=== PATIENT | male | born 1950 | race Two or more races ===

== ENCOUNTER 2017-06-17 17:46 | Emergency (ER) | payer BC, MEDICARE ==
[2017-06-17 18:11] VITALS: BP 195/104
[2017-06-17] MEDS ORDERED: ALBUTEROL SULF 2.5 MG/0.5ML(0.5%) NEB SOLN NEB ONE (19:30)
[2017-06-17] MEDS ORDERED: IPRATROPIUM BROM 0.5 MG/2.5ML INH SOL NEB ONE (19:30)
[2017-06-17] MEDS ORDERED: methylPREDNISolone SOD SUCC 125 MG/2 ML VL IM ONE (19:30)
== END 2017-06-17 20:15 | disposition home or self-care (01) ==
LOC: ER 17:50 → EDBD 17:50 → ER 20:15
DX: J40 Bronchitis, not specified as acute or chronic (principal)
CPT/HCPCS: 71046; 94640; 96372; 99284; J2930

== ENCOUNTER → 2022-12-02 | Outpatient (CLI) | payer OTHER ==
[2022-12-02 10:32] LABS: Potassium 3.6 mmol/L (3.5-5.1)
[2022-12-02 10:51] LABS: Albumin 3.6 g/dL (3.4-5.0); BUN/Creatinine Ratio 12.3 (10.0-20.0); Bilirubin, Total 0.5 mg/dL (0.2-1.0); Calcium 8.6 mg/dL (8.5-10.1)
== END | disposition home or self-care (01) ==
LOC: LAB 09:27
PROVIDERS: ATTEND Family Medicine
DX: E11.65 Type 2 diabetes mellitus with hyperglycemia (principal); E78.5 Hyperlipidemia, unspecified; R79.89 Other specified abnormal findings of blood chemistry; E55.9 Vitamin D deficiency, unspecified
CPT/HCPCS: 36415; 80053; 80061; 82306; 83036

== ENCOUNTER → 2023-04-24 | Outpatient (CLI) | payer OTHER | END | disposition home or self-care (01) | LOC: LAB 15:19 | PROVIDERS: ATTEND Family Medicine | DX: Z12.11 Encounter for screening for malignant neoplasm of colon (principal) | CPT/HCPCS: 82270 ==

== ENCOUNTER → 2024-05-24 | Outpatient (CLI) | payer OTHER ==
[2024-05-24 16:38] LABS: Alanine Aminotransferase 17 U/L (7-40); Albumin 4.1 g/dL (3.2-4.8); Anion Gap 7 (5-15); Aspartate Aminotransferase 18 U/L (13-40); BUN/Creatinine Ratio 17.4 (10.0-20.0); Blood Urea Nitrogen 20 mg/dL (9-23); Calcium 9.7 mg/dL (8.7-10.4); Carbon Dioxide 27 mmol/L (20-31); Chloride 105 mmol/L (98-107); Cholesterol 198 mg/dL (< 200); Potassium 3.6 mmol/L (3.5-5.1); Sodium 139 mmol/L (136-145)
[2024-05-24 16:39] LABS: Bilirubin, Total 0.5 mg/dL (0.2-1.0); HDL Cholesterol 48 mg/dL (40-59)
[2024-05-24 16:42] LABS: Alkaline Phosphatase 136 U/L (46-116); Glucose 125 mg/dL (74-106); LDL Cholesterol 132 mg/dL (< 100); Triglycerides 171 mg/dL (< 150)
== END | disposition home or self-care (01) ==
LOC: LAB 15:48
PROVIDERS: ATTEND Pathology Anatomic Pathology & Clinical Pathology
DX: I12.9 Hypertensive chronic kidney disease with stage 1 through stage 4 chronic kidney disease, or unspecified chronic kidney disease (principal); E11.65 Type 2 diabetes mellitus with hyperglycemia; E11.22 Type 2 diabetes mellitus with diabetic chronic kidney disease; N18.9 Chronic kidney disease, unspecified; E78.2 Mixed hyperlipidemia
CPT/HCPCS: 80053; 80061; 83036

== ENCOUNTER → 2024-08-02 | Outpatient (CLI) | payer OTHER ==
[2024-08-02 10:38] LABS: Chloride 104 mmol/L (98-107); Sodium 140 mmol/L (136-145)
[2024-08-02 10:39] LABS: Anion Gap 4 (5-15); Calcium 9.8 mg/dL (8.7-10.4)
[2024-08-02 10:44] LABS: BUN/Creatinine Ratio 15.9 (10.0-20.0); Blood Urea Nitrogen 14 mg/dL (9-23)
[2024-08-02 10:50] LABS: Carbon Dioxide 32 mmol/L (20-31); Glucose 181 mg/dL (74-106); Potassium 3.3 mmol/L (3.5-5.1)
== END | disposition home or self-care (01) ==
LOC: LAB 10:08
PROVIDERS: ATTEND Family Medicine
DX: E11.9 Type 2 diabetes mellitus without complications (principal)
CPT/HCPCS: 36415; 80048

== ENCOUNTER 2025-02-02 13:49 | Inpatient (IN) | payer OTHER, MEDICAID ==
[~2025-02-02] VITALS: Ht 170.2 cm; Wt 63.9 kg
[2025-02-02 16:04] VITALS: PULSE 74; RESP 46; O2SAT 95
[2025-02-02 16:31] VITALS: BP 148/86; PULSE 73; RESP 16; TEMP 97.5; O2SAT 95
[2025-02-02] MEDS ORDERED: ROSU5TAB24 PO (17:28)
[2025-02-02] MEDS ORDERED: FENO54TA4 PO (17:28)
[2025-02-02] MEDS ORDERED: TAMS0.4C39 PO (17:28)
[2025-02-02] MEDS ORDERED: METF-372 PO (17:28)
[2025-02-02] MEDS ORDERED: MEMA7CAP8 PO (17:28)
[2025-02-02] MEDS ORDERED: ASPI-628 PO (17:28)
[2025-02-02] MEDS ORDERED: GLIP10TA9 PO (17:28)
[2025-02-02] MEDS ORDERED: ONDANSETRON HCL 4 MG/2 ML VIAL IV PRN (17:30)
[2025-02-02] MEDS ORDERED: MORPHINE SULFATE INJ 2 MG/ml SYRG IV PRN (17:30)
[2025-02-02] MEDS ORDERED: ACETAMINOPHEN 325 MG TAB PO PRN (17:30)
[2025-02-02] MEDS ORDERED: DEXTROSE (50%) 50ML SYRG IV PRN (17:30)
[2025-02-02] MEDS ORDERED: HYDROcodone-ACET 5/325MG TAB PO PRN (17:30)
[2025-02-02] MEDS ORDERED: NITROGLYCERIN 0.4 MG SL TAB SL PRN (17:30)
[2025-02-02] MEDS ORDERED: DOCUSATE SOD 100 MG CAP PO PRN (17:30)
--- NOTE | 2025-02-02 18:07 | DVHHP2 ---
History of Present Illness Reason for Visit: right facial drop History of Present Illness Fernando Kay is a 74-year-old male with past medical history of dementia, hypertension, hyperlipidemia, diabetes, and BPH, who was a transfer due to insurance, from [facility] for R/O stroke. Patient was taken to the hospital due to vomiting blood, per family. While in the ER it was noticed he had a right facial drop. He was then admitted and worked up for stroke. CT head, & CT Angio of head and neck were negative at [facility]. Patient passed his speech evaluation there as well. He was waiting for the brain MRI. While at [facility] the patient's Hgb remained stable and there were no more S/S of vomiting blood, therefor the patient was not worked up for GI bleed. Cardiovascular: HTN, hyperipidemia Renal/: Benign prostatic enlarg. Endocrine: Diabetes Smoke: No ALCOHOL: none Drugs: None Lives: with Family Domestic Violence: Neg Review of Systems Constitutional: No: Fever, Chills, Sweats, Weakness, Malaise, Other Eyes: No: Pain, Vision change, Conjunctivae inflammation, Eyelid inflammation, Other, Redness ENT: No: Ear pain, Ear discharge, Nose pain, Nose discharge, Nose congestion, Mouth pain, Mouth swelling, Throat pain, Throat swelling, Other Respiratory: No: Cough, Dry, Shortness of breath, SOB with excertion, Wheezing, Hemoptysis, Pleuritic Pain, Sputum, Wheezing, Other Cardiovascular: No: Chest Pain, Palpitations, Orthopnea, Paroxysmal Noc. Dyspnea, Edema, Lt Headedness, Other Gastrointestinal: Other (vomiting blood); No: Nausea, Vomiting, Abdominal Pain, Diarrhea, Constipation, Melena, Hematochezia Genitourinary: No Dysuria, No Frequency, No Incontinence, No Hematuria, No Retention, No Other Musculoskeletal: No: other, neck pain, shoulder pain, arm pain, back pain, hand pain, leg pain, foot pain Skin: No: Rash, Lesions, Jaundice, Bruising, Other Neurological: Other (right facial drop); No: Weakness, Numbness, Incoordination, Change in speech, Confusion, Seizures Allergies: Coded Allergies: NO KNOWN ALLERGIES (Unverified , 06/17/17) Exam Vital Signs Vital Signs Date Time Temp Pulse Resp B/P (MAP) Pulse Ox O2 Delivery O2 Flow Rate FiO2 02/02/25 16:31 97.5 73 16 148/86 (106) 95 97.5 General Appearance: Alert, Other (can tell me his name but not date of , not able to anser any other orientation questions ) HEENT: Atraumatic, PERRLA, Mucous membr. moist/pink Respiratory: Clear to auscultation, Normal air movement Cardiovascular: Regular rate, Normal S1, Normal S2 Abdominal: Normal bowel sounds, Soft, No tenderness Extremities: No clubbing, No cyanosis, No edema, Normal pulses Skin: No rashes, No breakdown, No significant lesion Neuro: Other (Wheelchair bound at baseline ) Psych/Mental Status: Other (Altered at baseline) Labs/Xrays CBC, CMP, Chest X-Ray, EKG, ordered and pending SEPSIS Sepsis Screen Physician Orders Mrsa Screen (02/02/25 16:44) Admit (02/02/25 17:24) Code Status (02/02/25 17:24) 2 Gm Sodium Diet (02/02/25 Dinner) Sodium Chloride Lock (Saline Lock Ns) (02/02/25 22:00) Hydrocodone-Acet 5/325mg Tab (Mich[place]amme 5/32 (02/02/25 17:30) Ondansetron Hcl (Zofran) (02/02/25 17:30) Docusate Sodium Capsule (Colace Capsule) (02/02/25 17:30) Complete Blood Count (02/03/25 04:00) Comprehensive Metabolic Panel (02/03/25 04:00) Carotid Duplx W Color Dop (02/02/25 17:24) Condition: Serious (02/02/25 17:24) Enoxaparin Sodium (Lovenox) (02/03/25 10:00) Acetaminophen Tablet (Tylenol Tablet) (02/02/25 17:30) Nitroglycerin Sublingual (Ntrostat Subli (02/02/25 17:30) Morphine Sulfate Injection (02/02/25 17:30) Stat Ekg For Chest Pain (02/02/25 17:24) Notify Md Of Changes From Base (02/02/25 17:24) Stitching Department Supervisor For 24 Hours (02/02/25 17:24) Emergency Dysrhythmia Protocol (02/02/25 17:24) Rhythm Strips Once Every Shift (02/02/25 17:24) Oxygen By Nasal Cannula (02/02/25 17:24) Complete Blood Count (02/02/25 17:24) Comprehensive Metabolic Panel (02/02/25 17:24) Electrocardigram (02/02/25 17:24) Brain Head Wo Contrast (02/02/25 17:24) Glucose Blood (Accu-Chek Comfort Curve T (02/02/25 22:00) Bedtime Insulin Scale (02/02/25 22:00) Moderate Insulin Ss (02/03/25 07:00) Dextrose 50% Syringe (02/02/25 17:30) Aspirin Enteric Coated Tablet (Ecotrin E (02/03/25 10:00) Tamsulosin Hydrochloride (Flomax) (02/02/25 22:00) (Nf) Fenofibrate (02/03/25 10:00) (Nf) Glipizide (02/03/25 07:00) (Nf) Memantine Hydrochloride (Memantine (02/03/25 10:00) (Nf) Rosuvastatin Calcium (02/03/25 10:00) Vital Signs Date Time Temp Pulse Resp B/P (MAP) Pulse Ox O2 Delivery O2 Flow Rate FiO2 02/02/25 16:31 97.5 73 16 148/86 (106) 95 97.5 Assessment/Plan Assessment/Plan Assessment: R/O Stroke, Vomiting blood, Hypertension, Hyperlipidemia, Dementia, BPH, Diabetes, Plan: Admit to Tele, Neurology consult, MRI of brain, Physical therapy evaluation, Fall risk, Carotid duplex, Chest X-ray, EKG, Accu checks Q AC&HS with sliding scale, Home medications reconciled, waiting on dose of long acting insulin from family, Plan discussed with: Patient My Orders Orders - ERICKSON [facility] DIRECT[facility] Procedure Category Date Status Time Mrsa Screen LEIDY 02/02/25 Uncollected 16:44 Admit ADMIT 02/02/25 Transmitted 17:24 Code Status CODE 02/02/25 Transmitted 17:24 2 Gm Sodium Diet DIET 02/02/25 Transmitted Dinner Sodium Chloride Lock PHA 02/02/25 Logged (Saline Lock Ns) 22:00 Hydrocodone-Acet PHA 02/02/25 Logged 5/325mg Tab (Michigamme 17:30 Ondansetron Hcl PHA 02/02/25 Logged (Zofran) 17:30 Docusate Sodium PHA 02/02/25 Logged Capsule (Colace 17:30 Complete Blood Count LAB 02/03/25 Verified 04:00 Comprehensive LAB 02/03/25 Verified Metabolic Panel 04:00 Carotid Duplx W Color US 02/02/25 Logged DOP 17:24 Condition: Serious [facility] 02/02/25 In Process 17:24 Enoxaparin Sodium [facility] 02/03/25 Logged (Lovenox) 10:00 Acetaminophen Tablet PHA 02/02/25 Logged (Tylenol Tablet) 17:30 Nitroglycerin PHA 02/02/25 Logged Sublingual (Ntrostat 17:30 Morphine Sulfate PHA 02/02/25 Logged Injection 17:30 Stat Ekg For Chest [facility] 02/02/25 In Process Pain 17:24 Notify Of Changes [facility] 02/02/25 In Process From Base 17:24 Stitching Department Supervisor For [facility] 02/02/25 In Process 24 Hours 17:24 Emergency Dysrhythmia [facility] 02/02/25 In Process Protocol 17:24 Rhythm Strips Once [facility] 02/02/25 In Process Every Shift 17:24 Oxygen By Nasal RT 02/02/25 Transmitted Cannula 17:24 Complete Blood Count LAB 02/02/25 Logged 17:24 Comprehensive LAB 02/02/25 Logged Metabolic Panel 17:24 Electrocardigram EKG 02/02/25 Logged 17:24 Brain Head Wo Contrast MRI 02/02/25 Logged 17:24 Glucose Blood PHA 02/02/25 Verified (Accu-Chek Comfort 22:00 Bedtime Insulin Scale PHA 02/02/25 Verified 22:00 Moderate Insulin Ss PHA 02/03/25 Verified 07:00 Dextrose 50% Syringe PHA 02/02/25 Verified 17:30 Aspirin Enteric PHA 02/03/25 Verified Coated Tablet 10:00 Tamsulosin PHA 02/02/25 Verified Hydrochloride (Flomax) 22:00 (Nf) Fenofibrate PHA 02/03/25 Verified 10:00 (Nf) Glipizide PHA 02/03/25 Verified 07:00 (Nf) Memantine PHA 02/03/25 Verified Hydrochloride 10:00 (Nf) Rosuvastatin PHA 02/03/25 Verified Calcium 10:00 Date of Service: Feb 02, 2025 Billing Provider: ERICKSON PEARL Common Visit Codes: [id number] INP/OBS CARE (MOD) ERICKSON PEARL Feb 02, 2025 18:07
--- NOTE | 2025-02-02 18:48 | DVH ---
Indication: stroke Technique: Real-time ultrasound images of the neck vessels with whitten-scale, color and wave Doppler we re obtained. Comparison: None Findings: Technically limited examination due to patient mobility and hiccups. Right vertebral artery nonvisual ized. Mild atherosclerotic plaque. The following peak systolic velocities were recorded in cm/sec: Right internal carotid: 72 Right common carotid: 66 Right external carotid: 57 Right internal/common carotid ratio: 1.1 Left internal carotid: 83 Left common carotid: 53 Left external carotid: 58 Left internal/common carotid ratio: 1.6 Right vertebral artery: Nonvisualized Left vertebral artery: Patent with normal antegrade direction of flow. Impression: No hemodynamically significant stenosis by velocity criteria of the internal carotid arteries. Right vertebral artery nonvisualized.
[2025-02-02 19:14] LABS: Hematocrit 42.5 % (41.0-53.0); Hemoglobin 14.7 g/dL (13.5-17.5); Mean Corpuscular Hemoglobin 29.9 pg (28.0-32.0); Mean Corpuscular Volume 86.2 fL (80.0-100.0); Nucleated Red Blood Cells % 0.1 %
[2025-02-02 19:31] LABS: Alanine Aminotransferase 11 U/L (7-40); Albumin 4.1 g/dL (3.2-4.8); Anion Gap 12 (5-15); BUN/Creatinine Ratio 12.9 (10.0-20.0); Bilirubin, Total 0.6 mg/dL (0.2-1.0); Blood Urea Nitrogen 21 mg/dL (9-23); Calcium 9.8 mg/dL (8.7-10.4); Carbon Dioxide 29 mmol/L (20-31); Chloride 101 mmol/L (98-107); Potassium 3.6 mmol/L (3.5-5.1); Sodium 142 mmol/L (136-145); Total Protein 7.6 g/dL (5.7-8.2)
[2025-02-02 19:32] LABS: Alkaline Phosphatase 151 U/L (46-116); Glucose 187 mg/dL (74-106)
--- NOTE | 2025-02-02 19:53 | DVH ---
EXAM: XY CHEST PORTABLE HISTORY: stroke TECHNIQUE: 1 view of the chest COMPARISON: None FINDINGS/IMPRESSION: LUNGS: No pleural effusion, consolidation, or pneumothorax MEDIASTINUM: Unremarkable BONES: No acute osseous abnormality OTHER: None
[2025-02-02 20:00] VITALS: PULSE 74; PULSE 94; RESP 18; O2SAT 97
[2025-02-02 21:00] VITALS: BP 172/97; PULSE 94; RESP 18; TEMP 98.2; O2SAT 96
[2025-02-02] MEDS: ACCU-CHEK COMFORT CURVE STRIP VI SCH (22:00)
[2025-02-02] MEDS: SODIUM CHLOR 0.9% PF (SALINE LOCK) 10ML VIAL/SYR IV SCH (22:49)
[2025-02-02] MEDS: ATORVASTATIN 20 MG TAB PO SCH (22:50)
[2025-02-02] MEDS: TAMSULOSIN HYDROCHLORIDE 0.4 MG CAP PO SCH (22:50)
[2025-02-02] MEDS: InsuLIN REG 1unit/0.01ml Soln (100units/ml) SC SCH (22:51)
[2025-02-02] MEDS: INSULIN LANTUS (GLARGINE) 1 /0.01ml (100units/ml) SC SCH (22:52)
[2025-02-03] VITALS (8 sets, daily range): BP systolic 130–158; BP diastolic 73–87; PULSE 68–91; RESP 18–21; TEMP 98–98.8; O2SAT 93–98
[2025-02-03] MEDS: glipiZIDE 5 MG TAB PO SCH (06:17)
[2025-02-03] MEDS: InsuLIN REG 1unit/0.01ml Soln (100units/ml) SC SCH (06:18)
[2025-02-03 07:06] LABS: Hematocrit 36.9 % (41.0-53.0); Hemoglobin 13.2 g/dL (13.5-17.5); Mean Corpuscular Hemoglobin 30.2 pg (28.0-32.0); Mean Corpuscular Volume 84.5 fL (80.0-100.0); Nucleated Red Blood Cells % 0.0 %
[2025-02-03 07:12] LABS: Anion Gap 11 (5-15); BUN/Creatinine Ratio 25.4 (10.0-20.0); Calcium 9.3 mg/dL (8.7-10.4); Carbon Dioxide 29 mmol/L (20-31); Chloride 103 mmol/L (98-107); Sodium 143 mmol/L (136-145); Total Protein 6.6 g/dL (5.7-8.2)
[2025-02-03 07:13] LABS: Albumin 3.7 g/dL (3.2-4.8); Bilirubin, Total 0.5 mg/dL (0.2-1.0)
[2025-02-03 07:28] LABS: Alanine Aminotransferase < 9 U/L (7-40); Alkaline Phosphatase 128 U/L (46-116); Blood Urea Nitrogen 30 mg/dL (9-23); Glucose 106 mg/dL (74-106); Potassium 3.1 mmol/L (3.5-5.1)
[2025-02-03] MEDS: MEMANTINE HYDROCHLORIDE PO SCH (09:10)
[2025-02-03] MEDS: ENOXAPARIN SOD 30 MG/0.3 ML SYRINGE SC SCH (09:12)
[2025-02-03] MEDS: ASPirin-EC 81 mg tab PO SCH (09:12)
[2025-02-03] MEDS: POTASSIUM CHL 20 Meq TABLET PO ONE (11:23)
[2025-02-03 12:29] LABS: Hematocrit 38.2 % (41.0-53.0); Hemoglobin 13.5 g/dL (13.5-17.5)
[2025-02-03] MEDS ORDERED: PANT40TA2 PO (13:55)
--- NOTE | 2025-02-03 13:57 | DVHDS2 ---
Discharge Summary Date of Admission Feb 02, 2025 at 16:13 Date of Discharge: Feb 03, 2025 Admitting Diagnosis TIA Labs/Diagnostic Data: Laboratory Results Test 02/03/25 12:00 02/03/25 11:22 02/03/25 05:32 Hemoglobin 13.5 g/dL (13.5-17.5) Hematocrit 38.2 % (41.0-53.0) POC Glucose 76 mg/dl (70-106) White Blood Count 7.3 10^3/uL (4.4-10.8) Red Blood Count 4.36 10^6/uL (4.5-5.90) Mean Corpuscular Volume 84.5 fL (80.0-100.0) Mean Corpuscular Hemoglobin 30.2 pg (28.0-32.0) Mean Corpuscular Hemoglobin Concent 35.8 g/dL (32.0-36.0) Red Cell Distribution Width 14.3 % (11.8-14.3) Platelet Count 391 10^3/uL (140-450) Mean Platelet Volume 7.4 fL (6.9-10.8) Neutrophils (%) (Auto) 71.1 % (37.0-80.0) Lymphocytes (%) (Auto) 18.5 % (10.0-50.0) Monocytes (%) (Auto) 7.6 % (0.0-12.0) Eosinophils (%) (Auto) 2.1 % (0.0-7.0) Basophils (%) (Auto) 0.7 % (0.0-2.0) Neutrophils # (Auto) 5.2 10 ^3/uL (1.6-8.6) Lymphocytes # (Auto) 1.3 10 ^3/uL (0.4-5.4) Monocytes # (Auto) 0.6 10 ^3/uL (0-1.3) Eosinophils # (Auto) 0.2 10 ^3/uL (0-0.8) Basophils # (Auto) 0 10 ^3/uL (0-0.2) Nucleated Red Blood Cells 0.0 % Sodium Level 143 mmol/L (136-145) Potassium Level 3.1 mmol/L (3.5-5.1) Chloride Level 103 mmol/L (98-107) Carbon Dioxide Level 29 mmol/L (20-31) Anion Gap 11 (5-15) Blood Urea Nitrogen 30 mg/dL (9-23) Creatinine 1.18 mg/dL (0.700-1.30) Glomerular Filtration Rate Calc 64 mL/min (>90) BUN/Creatinine Ratio 25.4 (10.0-20.0) Serum Glucose 106 mg/dL (74-106) Calcium Level 9.3 mg/dL (8.7-10.4) Total Bilirubin 0.5 mg/dL (0.2-1.0) Aspartate Amino Transferase (AST) 13 U/L (13-40) Alanine Aminotransferase (ALT) < 9 U/L (7-40) Alkaline Phosphatase 128 U/L (46-116) Total Protein 6.6 g/dL (5.7-8.2) Albumin 3.7 g/dL (3.2-4.8) Other Laboratory Tests 02/03/25 12:00 02/03/25 05:32 Brief Hx & Hospital Course: Fernando Kay is a 74-year-old male with past medical history of dementia, hypertension, hyperlipidemia, diabetes, and BPH, who was a transfer due to insurance, from [facility] for R/O stroke. Patient was taken to the hospital due to vomiting blood, per family. While in the ER it was noticed he had a right facial drop. He was then admitted and worked up for stroke. CT head, & CT Angio of head and neck were negative at [place]. Patient passed his speech evaluation there as well. Patient will have a brain MRI done. H&H has been stable. Will discharge with Protonix. We will DC ASA. Followup with PCP in 1 week. Condition at Discharge: Poor Final Diagnosis/Problems List TIA GI Bleed ruled out Discharge Disposition: Home Discharge Instruct/Medications Diet: Regular Activity: Light activity Follow Up/Referral: PCP in 1 week Medications: see med recc Scheduled Aspirin (Aspirin Adult Low Dose), 1 TAB PO DAILY, (Reported) Fenofibrate (Fenofibrate), 1 TAB PO DAILY, (Reported) Glipizide (Glipizide), 1 TAB PO QAM, (Reported) Memantine Hydrochloride (Memantine Hydrochloride E), 1 CAP PO DAILY, (Reported) Metformin Hydrochloride (Metformin Hcl), 1 TAB PO BID, (Reported) Pantoprazole Sodium Sesquihydr (Protonix), 40 MG PO BID Rosuvastatin Calcium (Rosuvastatin Calcium), 1 TAB PO DAILY, (Reported) Tamsulosin Hcl (Tamsulosin Hcl), 0.4 MG PO HS, (Reported) Discharge Statement: "Patient was advised to return to the ER or call 911 if any headaches, dizziness, shortness of breath, chest pain, abdominal pain, bleeding, fevers, or worsening of medical condition. Patient was counseled about treatment plan, medications, possible side effects, patientverbalized understanding. All questions were answered to the best of my ability. This discharge took greater then 30 minutes in planning, reviewing documentation, counseling the patient, and discussing with other team members." ASSESSMENT ASSESSMENT Assessment Date of Service: Feb 03, 2025 Billing Provider: TIP SANDHU MD Common Visit Codes: [id number]/OBS DISCH DAY >30min TIP SANDHU MD Feb 03, 2025 13:57
--- NOTE | 2025-02-03 16:18 | DVH ---
CLINICAL HISTORY: R/O Stroke TECHNIQUE: Routine multiplanar imaging of the brain was performed without gadolinium contrast. COMPARISON: MRI BRAIN HEAD WO CONTRAST on DOS: 03/28/23 FINDINGS: Evaluation is limited due to image degradation secondary to patient motion. There is no abnormal restricted diffusion to suggest acute infarction. There are no significant chronic small vessel ischemic foci. There is [id number] brain volume loss. Scattered T2 hyperintense foci within the white matter o f both [place] hemispheres is most compatible with the [id number] burden of nonspecific chronic small vessel schema change. The foresight off blooming artifact at the bilateral thalami and right temporal lobe, which may repre sent old micro hemorrhages or calcifications. There is no evidence for acute ischemic changes, mass, mass effect, or extra-axial fluid collection. There is no hydrocephalus or midline shift. The cerebral sulci and subarachnoid cisterns are not effa abi. The imaged paranasal sinuses are clear. The globes are intact. The midline structures, including the corpus callosum, are unremarkable. The intracranial flow voids are maintained. IMPRESSION: Limited exam with no evidence for acute infarct. Mild to moderate brain volume loss and chronic small vessel ischemic change. Foresight of blooming artifact at the bilateral thalami and right lateral temporal lobe, which may re present old microhemorrhages or calcifications.
--- NOTE | 2025-02-07 08:13 | ECG ---
[facility] Test Date: 2025-02-03 Test Time: 11:38:29 Pat Name: ROSALVA GURROLA Department: Room: 0277T B Gender: M [employer]: Addie : 1950 Requested By: ERICKSON PEARL Order Number: [id number] Reading MD: Bandar Costa Measurements Intervals [place] Rate: 77 P: 25 DC: 121 QRS: -40 QRSD: 94 T: 120 QT: 395 QTc: 448 Interpretive Statements Sinus rhythm Left anterior fascicular block Abnormal R-wave progression, late transition Nonspecific T abnormalities, lateral leads Artifact in lead(s) I,III,aVR,aVL,aVF,V2 Electronically Signed On 02-08-2025 18:08:21 PDT by Bandar Costa Please click the below link to view image of tracing.
== END 2025-02-03 21:05 | disposition home or self-care (01) | DRG 69 ==
LOC: TELE-WESTW 16:13
PROVIDERS: ADMIT Internal Medicine; ATTEND Internal Medicine
DX: G45.9 Transient cerebral ischemic attack, unspecified (principal); K92.0 Hematemesis; E78.5 Hyperlipidemia, unspecified; I10 Essential (primary) hypertension; E11.9 Type 2 diabetes mellitus without complications; F03.90 Unspecified dementia, unspecified severity, without behavioral disturbance, psychotic disturbance, mood disturbance, and anxiety; N40.0 Benign prostatic hyperplasia without lower urinary tract symptoms; Z91.81 History of falling; Z79.4 Long term (current) use of insulin
CPT/HCPCS: 36415; 70551; 71045; 80053; 82962; 85014; 85018; 85025; 87081; 93005; 93886; G0378; J1815